=== PATIENT | female | born 1945 | race Caucasian/White ===

== ENCOUNTER → 2020-08-20 | Outpatient (CLI) | payer OTHER, BC ==
[~2020-08-20] MED LIST: FENOFIBRATE48 MG PO; GLUCOPHAGE XR750 MG PO; LOSARTAN POTAS100 MG PO; OMEPRAZOLE 20 M20 M1 PO; VITAMIN D325 MC3 PO
== END ==
LOC: LAB 09:47
PROVIDERS: ATTEND Specialist
DX: Z01.812 Encounter for preprocedural laboratory examination (principal); Z20.822 Contact with and (suspected) exposure to COVID-19

== ENCOUNTER → 2020-08-24 | Outpatient (CLI) | payer OTHER, BC ==
[~2020-08-24] VITALS: Ht 152.4 cm; Wt 78.0 kg
--- NOTE | 2020-08-24 09:43 | P ---
[facility] [place] [address] PROCEDURE REPORT Name: JORGE JUAREZ Room #: REG Douglas Velazquez#: [id number] Admission: 08/24/20 Attend Phys: Natalio Back Discharge: Date of : 47 Report #: [id number] THIS REPORT FOR: cc: Aiden Higgins,Aiden Domínguez,Natalio Rosario MD ~ DATE OF SERVICE: 08/24/2020 PROCEDURE PERFORMED: Colonoscopy with biopsies. HISTORY OF PRESENT ILLNESS: The patient is a 74-year-old female with a history of colon cancer, apparently had a polyp years ago with carcinoma in situ that was removed completely. Last colonoscopy was in 2014, which showed diverticulosis, otherwise normal. Plan is for repeat colonoscopy today. No family history of colon cancer. DESCRIPTION OF PROCEDURE: The risks and benefits of the procedure were explained to the patient, those risks including but not limited to bleeding, perforation and the risk of sedation. She understood these risks and gave informed consent. Sedation was given using propofol per anesthesia. Next, a digital rectal exam was initially performed, which was normal. Next, using a standard Olympus colonoscope, the scope was placed in the patient's anus and advanced under direct vision to the cecum. The overall prep was good. In the cecum, there was a 4 mm sessile polyp. This was removed with cold forceps, otherwise normal. The ileocecal valve was normal. In the ascending colon, a 5 mm sessile polyp was noted, also removed with cold forceps. The transverse and descending colon were normal. Multiple diverticula were noted in the sigmoid colon, no evidence of inflammation, otherwise normal. The rectal mucosa was normal. On retroflexion, small nonbleeding internal hemorrhoids were noted. The scope was then withdrawn and the procedure terminated. The patient tolerated the procedure well. IMPRESSION: 1. Two small colonic polyps. 2. Sigmoid diverticulosis. 3. Small internal hemorrhoids. 4. Otherwise, normal colonoscopy. RECOMMENDATIONS: 1. Await biopsy results. 2. Recommend repeat colonoscopy in [address] [address] PROCEDURE REPORT Name: JORGE JUAREZ Room #: REG NIURKA Velazquez#: [id number] Admission: 08/24/20 Attend Phys: Natalio Back Discharge: Date of : 47 Report #: [id number] Thank you for allowing me to participate in her care. <ELECTRONICALLY SIGNED> By: Natalio Shepherd MD 08/24/20 0943 0925 [id number] Natalio Shepherd MD /nt
--- NOTE | 2020-08-28 19:07 | PATH ---
[facility] [address] [place] [address] PATHOLOGY RPT PROCEDURE Name: LENNYJORGE NELL Room #: REG NIURKA Leggett.#: [id number] Admission: 08/24/20 Date of : 47 Discharge: Report #: [id number] Path Case #: [id number] Accession Number: [id number] . 01 Material submitted: . PART A: gastrointestinal site - CECAL POLYP BIOPSY PART B: colon - ASCENDING COLON POLYP. Modifiers: ascending . 01 Clinical history: . HISTORY OF COLON CANCER . 02 Diagnosis: A. Large bowel, "cecal polyp", endoscopic biopsy: - Tubular adenoma; negative for high grade dysplasia and malignancy. - Polypoid fragment of large bowel mucosa with prominent intramucosal lymphoid aggregate; negative for dysplasia and malignancy. . B. Large bowel, "ascending colon polyp", endoscopic biopsy: - Tubular adenoma; negative for high grade dysplasia and malignancy. . (KENDAL:poppy; 08/28/2020) QLM 08/28/2020 1803 Local . 02 Electronically signed: . Aren Wong MD, Pathologist NPI- [id number] . 01 Gross description: . A. Received in formalin labeled "Jorge Galvez biopsy cecal polyp" are multiple simmons-brown soft tissue fragments measuring in aggregate 0.7 x 0.3 x 0.2 cm. The specimen is submitted entirely in A1. . B. Received in formalin labeled "Lenny, Jorge biopsy ascending colon polyp" are multiple simmons-brown soft tissue fragments measuring in aggregate 0.8 x 0.3 x 0.2 cm. The specimen is submitted entirely in B1. ([facility]; 08/27/2020) GZA/GZA 08/28/2020 1328 Local . 02 Pathologist provided ICD-10: D12.0, D12.2 . 02 CPT . 074573, 083418 Specimen Comment: Report sent to Performed at: [address] [facility], [place] [id number] [place] [address] PATHOLOGY RPT PROCEDURE Name: JORGE GALVEZ Room #: REG CLDouglas Velazquez#: [id number] Admission: 08/24/20 Date of : 47 Discharge: Report #: [id number] Path Case #: [id number] MD Ruy Manley MD Phone: [phone] Performed at: [address] [id number] MD Angeles Flores MD Phone: [phone]
== END | disposition home or self-care (01) ==
LOC: GI 07:44
PROVIDERS: ATTEND Specialist
DX: Z12.11 Encounter for screening for malignant neoplasm of colon (principal); Z85.038 Personal history of other malignant neoplasm of large intestine; Z86.010 Personal history of colon polyps; K64.8 Other hemorrhoids; D12.0 Benign neoplasm of cecum; D12.2 Benign neoplasm of ascending colon; K57.30 Diverticulosis of large intestine without perforation or abscess without bleeding; I10 Essential (primary) hypertension; E11.9 Type 2 diabetes mellitus without complications; E78.00 Pure hypercholesterolemia, unspecified; D50.9 Iron deficiency anemia, unspecified; K21.9 Gastro-esophageal reflux disease without esophagitis; Z98.890 Other specified postprocedural states; Z79.899 Other long term (current) drug therapy; Z98.42 Cataract extraction status, left eye; Z98.41 Cataract extraction status, right eye; Z90.710 Acquired absence of both cervix and uterus; Z90.49 Acquired absence of other specified parts of digestive tract; Z88.8 Allergy status to other drugs, medicaments and biological substances; Z85.820 Personal history of malignant melanoma of skin
CPT/HCPCS: 62110; 62900